=== PATIENT | male | born 1930 | race Caucasian/White ===

== ENCOUNTER 2016-11-27 11:11 | Inpatient (IN) | payer MEDICARE, MEDICAID ==
--- NOTE | 2016-11-27 12:25 | ED Physician Chart ---
ED Chief Complaint/HPI - Patient Information Date Seen:: 11/27/16 Time Seen:: 12:20 Chief Complaint:: falling History of Present Illness:: pt having freq falls. concerning to family. he fell earlier today. lost balance fell. no loc. pos hit head. family notes increased tremors lately and he seems more weak. no fever. no illness. no n/v/d. eats ok. no rash. no ZAYAS. not increased confusion since fall. pt has been w Dr Beatty in past but is requesting Dr Smith today hx of brain sx for ic bleed 4 yrs ago Allergies:: Allergies Allergy/AdvReac Type Severity Reaction Status Date / Time No Known Allergies Allergy Verified 12/27/15 04:23 Vitals:: Vital Signs - 8 hr 11/27/16 11:28 Temp 98.1 F HR 70 RR 16 BP 133/73 O2 Sat % 98 Historian:: Patient, Friend (dtr,grnd dtr) ED Past Medical History - Past Medical History Past Medical History: Other (aldzheimers, essential tremors) Social History: Other (lives w family) Surgical History: Pacemaker, other (hx of brain sx for ic bleed 4 yrs ago) Medication: Reviewed Family Medical History - Family Member family History Unknown: Yes Ethnicity: Unknown Living Status: Unknown Hx Family Cancer: No Hx Family Coronary Artery Disease: No Hx Family Congestive Heart Failure: (unknown) Hx Family Hypertension: No Hx Family Stroke: No Hx Family Diabetes: (unknown) Hx Family Seizures: No Hx Family Dementia: No Hx Family AIDS: (unknown) Hx Family HIV: No Hx Family COPD: No Hx Family Hepatitis: (unknown) Hx Family Psychiatric Problems: (unknown) Hx Family Tuberculosis: (unknown) ED Physical Exam - Physical Examination General/Constitutional: Awake, Well-developed, well-nourished, Alert, No distress, GCS 15, Non-toxic appearing, Ambulatory Other Gen/Cons comments:: mod obese. pt lets family give history..suspect his ability is limited... no focal major neuro defecit. wn/wh. eyes a little sunken. Head: Atraumatic Eyes: Lids, conjuctiva normal, PERRL, EOMI Skin: Nl inspection, No rash, No skin lesions, No ecchymosis, Well hydrated, No lymphadenopathy ENMT: External ears, nose nl, Nasal exam nl, Lips, teeth, gums nl Neck: Nontender, Full ROM w/o pain, No JVD, No nuchal rigidity, No bruit, No mass, No stridor Other Neck comments:: neck nontndr. ok rom without pain. head no evidence of trauma. no injury.no bruising. Respiratory: Nl effort/Exclusion, Clear to Auscultation, No Wheeze/Rhonchi/Rales Cardio Vascular: RRR, No murmur, gallop, rubs, NL S1 S2 GI: No tenderness/rebounding/guarding, No organomegaly, No hernia, Normal BS's, Nondistended, No mass/bruits, No McBurney tenderness : No CVA tenderness Extremities: No tenderness or effusion, Full ROM, normal strength in all extremities, No edema, Normal digits & nails Neuro/Psych: Alert/oriented, DTR's symmetric, Normal sensory exam, Normal motor strength, Mood normal, Normal gait, No focal deficits Misc: normal gait, Normal back, No paraspinal tenderness ED Labs/Radiology/EKG Results - Lab Results Results: Laboratory Tests 11/27/16 11/27/16 11/27/16 12:25 12:25 12:25 WBC 7.1 RBC 3.95 Hgb 11.8 L Hct 35.3 L MCV 89.3 MCH 29.9 MCHC Differential 33.5 RDW 13.4 Plt Count 189 MPV 8.6 Neutrophils % 55.0 Lymphocytes % 31.8 Monocytes % 7.4 Eosinophils % 5.2 H Basophils % 0.6 Sodium 140 Potassium 4.9 Chloride 110 H Carbon Dioxide 26.1 Anion Gap 8.8 BUN 29 H Creatinine 2.1 H Est GFR ( Amer) TNP Est GFR (Non-Af Amer) TNP BUN/Creatinine Ratio 13.8 Glucose 86 Calcium 8.6 Total Bilirubin 0.3 AST 11 L ALT 7 Alkaline Phosphatase 56 Troponin I 0.03 Total Protein 6.2 Albumin 3.4 L Globulin 2.8 Albumin/Globulin Ratio 1.2 - Radiology Results Results: ct head -- IMPRESSION: No evidence of acute intracranial hemorrhage. Postsurgical changes including evidence of bifrontal bitemporal craniotomies. Please core the clinical history. Diffuse supratentorial white matter disease which is nonspecific and may be due to chronic microvessel ischemia. Old right basal ganglia lacunar infarcts. Atrophy. Atherosclerotic vascular disease. ED Septic Shock - . Is Septic Shock (SBP<90, OR Lactate>4 mmol\L) present?: No - <6hrs of presentation: Vital Signs: Vital Signs - 8 hr 11/27/16 11:28 Temp 98.1 F HR 70 RR 16 BP 133/73 O2 Sat % 98 ED Reassessment (Disposition) - Reassessment Reassessment Condition:: Improved - Aftercare/Follow up Instructions Aftercare/Follow-Up Instructions:: Counseled pt & family regarding lab results/ diagnosis & need follow up Medication Prescribed:: rx indocin and colchicine rx dw pt use of. advise see pmd in next 2 wks. return fi worse pain and redness/swelling develops. reast. avoid red meats. encouraged further reading on gout and diet modification...increase fluids - Patient Disposition Discharge/Transfer:: Home Condition at Disposition:: Improved
[2016-11-27 12:46] LABS: % BASOPHILS 0.6 % (0.0-2.0); % EOSINOPHILS 5.2 % (0.0-5.0); % LYMPHOCYTES 31.8 % (20.0-50.0); % MONOCYTES 7.4 % (2.0-10.0); HEMATOCRIT 35.3 % (41.0-60); HEMOGLOBIN 11.8 gm/dL (12-16); MEAN CELL VOLUME 89.3 fl (80-99); MEAN CORPUSCULAR HEMOGLOBIN 29.9 pg (27.0-31.0); MEAN CORPUSCULAR HGB CONC 33.5 pg (28.0-36.0); MEAN PLATELET VOLUME 8.6 fl; NEUTROPHILE ABSOLUTE 3.9 Th/cmm (1.8-8.0); PLATELET COUNT 189 Th/cmm (150-400); RED BLOOD COUNT 3.95 Mil/cmm (3.80-5.80); RED CELL DISTRIBUTION WIDTH 13.4 % (11.5-20.0); WHITE BLOOD COUNT 7.1 Th/cmm (4.8-10.8)
[2016-11-27 12:55] LABS: ALB/GLOB RATIO 1.2 (1.0-1.8); ALKALINE PHOSPHATASE 56 U/L (34-104); ANION GAP 8.8 (7.0-16.0); BILIRUBIN,TOTAL 0.3 mg/dL (0.3-1.0); BUN - UREA NITROGEN 29 mg/dL (7-25); BUN/CREATININE RATIO 13.8; CALCIUM SERUM 8.6 mg/dL (8.6-10.3); CARBON DIOXIDE 26.1 mEq/L (21.0-31.0); CHLORIDE 110 mEq/L (98-107); CREATININE - SERUM 2.1 mg/dL (0.7-1.3); GLUCOSE 86 mg/dL (70-105); POTASSIUM SERUM 4.9 mEq/L (3.5-5.1); SGOT 11 U/L (13-39); SGPT/ALT 7 U/L (7-52); SODIUM SERUM 140 mEq/L (136-145)
--- NOTE | 2016-11-27 13:28 | Diagnostic Imaging Report ---
Head CT without intravenous contrast Indication: Fall Comparison: None Technique: Axial images were obtained from the vertex to the skull base without IV contrast. Coronal reconstructions were made. Total DLP: 1429, [id number] FINDINGS: Images of the brain obtained without contrast demonstrate evidence of previous bifrontal and by temporal craniotomies. Atrophy is noted. There is no evidence of an acute hemorrhage. Diffuse supratentorial white matter disease is noted. Old right basal ganglia infarcts are noted. The ventricles and basal cisterns are patent. No mass effect or midline shift. Mild atherosclerotic vascular disease is noted. No focal soft tissue swelling. The visualized paranasal sinuses demonstrate mild mucosal thickening. IMPRESSION: No evidence of acute intracranial hemorrhage. Postsurgical changes including evidence of bifrontal bitemporal craniotomies. Please core the clinical history. Diffuse supratentorial white matter disease which is nonspecific and may be due to chronic microvessel ischemia. Old right basal ganglia lacunar infarcts. Atrophy. Atherosclerotic vascular disease.
[2016-11-27 15:22] LABS: URINE BILIRUBIN NEGATIVE (NEGATIVE); URINE BLOOD NEGATIVE (NEGATIVE); URINE GLUCOSE (UA) NEGATIVE (NEGATIVE); URINE KETONE NEGATIVE (NEGATIVE); URINE PH 5.5 (4.6 - 8.0); URINE PROTEIN NEGATIVE (NEGATIVE); URINE UROBILINOGEN 0.2 E.U./dL (0.2 - 1.0)
[2016-11-27 15:24] LABS: URINE COLOR YELLOW
[2016-11-27 15:25] LABS: URINE BACTERIA NONE SEEN /hpf (NONE SEEN); URINE EPITHELIAL CELLS NONE SEEN /lpf (FEW); URINE RBC NONE SEEN /hpf (0-5); URINE WBC NONE SEEN /hpf (0-5)
[2016-11-27] MEDS ORDERED: D5-0.9%NS 1,000 ML IV SCH (16:30)
[2016-11-27] MEDS ORDERED: Maalox 30 mL Cup PO PRN (17:02)
[2016-11-27 17:15] VITALS: BP 108/47
[2016-11-27] MEDS ORDERED: Hydrocodone/APAP 5mg/325mg Tab PO PRN (20:32)
[2016-11-28 05:45] LABS: % BASOPHILS 0.5 % (0.0-2.0); % LYMPHOCYTES 36.5 % (20.0-50.0); % MONOCYTES 6.3 % (2.0-10.0); % NEUTROPHILS 51.7 % (40.0-80.0); HEMATOCRIT 35.5 % (41.0-60); HEMOGLOBIN 11.7 gm/dL (12-16); MEAN CORPUSCULAR HEMOGLOBIN 29.5 pg (27.0-31.0); MEAN CORPUSCULAR HGB CONC 33.1 pg (28.0-36.0); MEAN PLATELET VOLUME 8.6 fl; PLATELET COUNT 175 Th/cmm (150-400); RED BLOOD COUNT 3.99 Mil/cmm (3.80-5.80); RED CELL DISTRIBUTION WIDTH 13.3 % (11.5-20.0); WHITE BLOOD COUNT 7.7 Th/cmm (4.8-10.8)
[2016-11-28 06:06] LABS: ANION GAP 10.3 (7.0-16.0); BUN - UREA NITROGEN 31 mg/dL (7-25); BUN/CREATININE RATIO 14.8; CALCIUM SERUM 8.7 mg/dL (8.6-10.3); CARBON DIOXIDE 24.2 mEq/L (21.0-31.0); CHLORIDE 110 mEq/L (98-107); CREATININE - SERUM 2.1 mg/dL (0.7-1.3); GLUCOSE 89 mg/dL (70-105); POTASSIUM SERUM 4.5 mEq/L (3.5-5.1); SODIUM SERUM 140 mEq/L (136-145)
[2016-11-28] MEDS ORDERED: Hydrocodone/APAP 5mg/325mg Tab PO PRN (08:10)
[2016-11-28] MEDS: Aspirin 81mg Chewable Tab PO SCH (08:40)
--- NOTE | 2016-11-28 10:25 | History & Physical ---
ADMIT DATE: 11/27/2016 HISTORY OF PRESENT ILLNESS: This is an 86-year-old male patient who came to [facility]. The patient is a resident of a [facility] and [facility]. Apparently, the patient had prior craniotomy. The patient also has a history of cardiac arrhythmia, and the patient had a pacemaker put in, and the patient has history of dementia and Alzheimer disease. The patient has a history of recurrent falls and he was sent for evaluation. The patient was seen and was admitted for further evaluation. The patient complains of no chest pain, no abdominal pain, no nausea, no vomiting, no diarrhea. REVIEW OF SYSTEMS: Otherwise, negative, except history of forgetfulness, which is increasing, dementia increasing, and history of recurrent falls. PAST MEDICAL HISTORY: As enumerated above, history of Alzheimer's disease, history of dementia, history of craniotomy, status post craniotomy x 2, history of status post pacemaker. The patient has a history of lacunar infarct and CVA. MEDICATIONS: The patient is on beta emiliano. He is on isosorbide. He is on Keppra for his seizures, and the patient is on aspirin as well. PHYSICAL EXAMINATION: GENERAL: The patient on examination is awake, alert, not in any distress. HEAD: Normal. ENT: Normal. NECK: Supple, nontender. LUNGS: Clear. CARDIOVASCULAR SYSTEM: S1, S2 heard. ABDOMEN: Soft. Bowel sounds are heard. CENTRAL NERVOUS SYSTEM: The patient has forgetfulness, and is little confused. IMPRESSION: History of recurrent falls, increasing dementia, history of recent craniotomy x 2, history of status post pacemaker, history of seizures, history of cerebrovascular accident, and history of heart disease, toxic metabolic encephalopathy. PLAN: The patient is being admitted. I will go ahead and do a cardiac workup and neuro workup. I will have Dr. Dyer and Dr. Johann Frost see the patient. We will further evaluate the reason for his falls. We will also get physical therapy involved and give him PT, and I will also do some blood work to see if there is any vitamin deficiency to reverse any portion of dementia. [facility]# [id number]
--- NOTE | 2016-11-28 12:25 | Diagnostic Imaging Report ---
Exam: Ultrasound examination of the extracranial carotid circulation. HISTORY: Frequent.. Findings: Real-time ultrasound summation of the extracranial carotid circulation was performed multiple planes utilizing color Doppler technique. The study demonstrates moderate atherosclerotic plaque formation along the course of common carotid arteries the plaque arising into the origin internal and external carotid arteries bilaterally. Subintimal thickening is noted carotid bulbs bilaterally. The vertebral arteries are not visualized due to patient inability to cooperate Right internal carotid artery ratio 0.9 Left internal carotid artery ratio 1.4 IMPRESSION: Moderate atherosclerotic plaque formation of the carotid arteries bilaterally with calcified and soft plaque formation of the origin internal carotid arteries bilaterally without significant stenosis or alteration of flow. The study somewhat limited due to patient inability to cooperate.
--- NOTE | 2016-11-28 15:16 | Cardiology ---
11/28/[address] Smith. M-MODE ECHOCARDIOGRAM: Mitral valve, anterior leaflet of mitral valve shows normal excursion, EF velocity. Posterior leaflet of mitral valve shows normal excursion. Left ventricular posterior wall shows increased thickness, normal excursion. Interventricular septum shows increased thickness, normal excursion, hypertrophy of the left ventricle, ejection fraction 50%. Left atrium enlarged 4.1 cm. Aortic root shows normal dimension, normal excursion of aortic leaflets. CONCLUSION: Hypertrophy of the left ventricle, left atrial enlargement, ejection fraction 50%. 2D ECHO: Long axis view showed normal sized left ventricle with hypertrophy of the left ventricle. Left atrium enlarged. Aortic root shows normal dimension, normal excursion of aortic leaflets. Short axis view of mitral valve normal. Short axis view of aortic valve normal. Apical four chamber view showed normal sized left ventricle with hypertrophy of the left ventricle. Left atrium enlarged. Right ventricular cavity, right atrium normal, no pericardial effusion. CONCLUSION: Hypertrophy of the left ventricle. Left atrial enlargement, ejection fraction 50%. Doppler study shows prominent A wave consistent with poor compliance of left ventricle. Mild mitral regurgitation, mild tricuspid regurgitation, moderate aortic regurgitation, mild pulmonary regurgitation. [facility]# [id number]
[2016-11-28] MEDS ORDERED: VTE Chemical Prophylaxis Screen/Admission MC PRN (16:37)
--- NOTE | 2016-11-28 21:47 | Consultation ---
DATE OF CONSULTATION: 11/28/[address] Smith. HISTORY AND PHYSICAL: This is an 86-year-old male patient, who came to the Emergency Room because of frequent falls. The patient was seen in the Emergency Room and the patient is admitted. The patient has sick sinus syndrome with a pacemaker. No history of PND. The patient is confused and has dementia. PAST MEDICAL HISTORY: Craniotomy x2 for reason unknown, sick sinus syndrome with pacemaker, dementia, old lacunar infarct, CVA with late effect, iron-deficiency anemia. FAMILY HISTORY: Unremarkable. SOCIAL HISTORY: No history of smoking, alcohol abuse. ALLERGIES: No known allergies. PHYSICAL EXAMINATION: VITAL SIGNS: Blood pressure 130/80, pulse 70, respirations 20. HEAD: Normocephalic. No lumps or bumps. EYES: Pupils equal, reactive to light. Fundi show AV nicking. Sclerae white, conjunctivae pink. NECK: Carotid 2+. Normal upstroke. JVD flat. Thyroid not palpable. Lymph nodes not palpable. CHEST: Shows increased AP diameter. No kyphosis, scoliosis. LUNGS: Bilateral bronchovesicular breath sounds. HEART: PMI fifth intercostal space with lateral to midclavicular line. S1, S2. No S3, S4. Systolic murmur, grade 2/6, lower left sternal border without radiation. ABDOMEN: Soft. Liver and spleen are not palpable. No organomegaly. Bowel sounds are active. NEUROLOGIC: The patient has frequent falls. EXTREMITIES: No pedal edema. CLINICAL IMPRESSION: 1. Ataxia with frequent falls. 2. Previously craniotomy x2. 3. Sick sinus syndrome with pacemaker. 4. Dementia. 5. Old lacunar infarct. 6. Cerebrovascular accident with late effect. 7. Iron-deficiency anemia. 8. Chronic kidney disease, stage 2. PLAN: Admitted the patient. The patient had an echocardiogram which showed hypertrophy of the left ventricle, ejection fraction 50%, left atrial enlargement, right atrial enlargement, mild tricuspid regurgitation, mild mitral regurgitation, moderate aortic regurgitation, mild pulmonary regurgitation. We will monitor the patient for any arrhythmias. JOB# [id number]
[2016-11-29] MEDS: Aspirin 81mg Chewable Tab PO SCH (09:37)
--- NOTE | 2016-11-29 11:09 | General Progress Note ---
Subjective - Review of Systems Events since last encounter: 86 year old male patient with h/o craniotomy h/o cardiac arrhythmia, pace maker h/o dementia h/o alzheimers disease admitted for evaluation s/p falls patient awake alert no distress Objective - Results Result Diagrams: 11/28/16 05:08 11/28/16 05:08 Recent Labs: Laboratory Last Values WBC 7.7 Th/cmm (4.8-10.8) 11/28/16 05:08 RBC 3.99 Mil/cmm (3.80-5.80) 11/28/16 05:08 Hgb 11.7 gm/dL (12-16) L 11/28/16 05:08 Hct 35.5 % (41.0-60) L 11/28/16 05:08 MCV 89.0 fl (80-99) 11/28/16 05:08 MCH 29.5 pg (27.0-31.0) 11/28/16 05:08 MCHC Differential 33.1 pg (28.0-36.0) 11/28/16 05:08 RDW 13.3 % (11.5-20.0) 11/28/16 05:08 Plt Count 175 Th/cmm (150-400) 11/28/16 05:08 MPV 8.6 fl 11/28/16 05:08 Neutrophils % 51.7 % (40.0-80.0) 11/28/16 05:08 Lymphocytes % 36.5 % (20.0-50.0) 11/28/16 05:08 Monocytes % 6.3 % (2.0-10.0) 11/28/16 05:08 Eosinophils % 5.0 % (0.0-5.0) 11/28/16 05:08 Basophils % 0.5 % (0.0-2.0) 11/28/16 05:08 Sodium 140 mEq/L (136-145) 11/28/16 05:08 Potassium 4.5 mEq/L (3.5-5.1) 11/28/16 05:08 Chloride 110 mEq/L (98-107) H 11/28/16 05:08 Carbon Dioxide 24.2 mEq/L (21.0-31.0) 11/28/16 05:08 Anion Gap 10.3 (7.0-16.0) 11/28/16 05:08 BUN 31 mg/dL (7-25) H 11/28/16 05:08 Creatinine 2.1 mg/dL (0.7-1.3) H 11/28/16 05:08 Est GFR ( Amer) TNP 11/28/16 05:08 Est GFR (Non-Af Amer) TNP 11/28/16 05:08 BUN/Creatinine Ratio 14.8 11/28/16 05:08 Glucose 89 mg/dL (70-105) 11/28/16 05:08 Calcium 8.7 mg/dL (8.6-10.3) 11/28/16 05:08 Total Bilirubin 0.3 mg/dL (0.3-1.0) 11/27/16 12:25 AST 11 U/L (13-39) L 11/27/16 12:25 ALT 7 U/L (7-52) 11/27/16 12:25 Alkaline Phosphatase 56 U/L (34-104) 11/27/16 12:25 Troponin I 0.03 ng/mL (0.01-0.05) 11/27/16 12:25 Total Protein 6.2 gm/dL (6.0-8.3) 11/27/16 12:25 Albumin 3.4 gm/dL (4.2-5.5) L 11/27/16 12:25 Globulin 2.8 gm/dL 11/27/16 12:25 Albumin/Globulin Ratio 1.2 (1.0-1.8) 11/27/16 12:25 Urine Source CLEAN C 11/27/16 14:45 Urine Color YELLOW 11/27/16 14:45 Urine Clarity CLEAR (CLEAR) 11/27/16 14:45 Urine pH 5.5 (4.6 - 8.0) 11/27/16 14:45 Ur Specific [place] 1.025 (1.005-1.030) 11/27/16 14:45 Urine Protein NEGATIVE mg/dL (NEGATIVE) 11/27/16 14:45 Urine Glucose (UA) NEGATIVE mg/dL (NEGATIVE) 11/27/16 14:45 Urine Ketones NEGATIVE mg/dL (NEGATIVE) 11/27/16 14:45 Urine Blood NEGATIVE (NEGATIVE) 11/27/16 14:45 Urine Nitrate NEGATIVE (NEGATIVE) 11/27/16 14:45 Urine Bilirubin NEGATIVE (NEGATIVE) 11/27/16 14:45 Urine Urobilinogen 0.2 E.U./dL (0.2 - 1.0) 11/27/16 14:45 Ur Leukocyte Esterase NEGATIVE (NEGATIVE) 11/27/16 14:45 Urine RBC NONE SEEN /hpf (0-5) 11/27/16 14:45 Urine WBC NONE SEEN /hpf (0-5) 11/27/16 14:45 Ur Epithelial Cells NONE SEEN /lpf (FEW) 11/27/16 14:45 Urine Bacteria NONE SEEN /hpf (NONE SEEN) 11/27/16 14:45 - Physical Exam Vitals and I&O: Vital Signs Temp 98.4 F 11/29/16 04:00 Pulse 80 11/29/16 09:37 Resp 20 11/29/16 04:00 BP 153/73 11/29/16 09:37 Pulse Ox 95 11/29/16 04:00 Intake & Output 11/28/16 11/29/16 11/29/16 18:59 06:59 18:59 Intake Total 650 Balance 650 Weight (lbs) 104.326 kg 103.873 kg Intake: Oral 650 Other: # Voids 6 # Bowel Movements 0 Active Medications: Current Medications Acetaminophen (Tylenol) 650 mg PO Q4H PRN PRN Reason: Pain (Mild) Stop: 01/27/17 08:07 Acetaminophen/Hydrocodone Bitart ([place] 5mg/325mg) 1 tab PO Q4H PRN PRN Reason: Pain (Moderate) Stop: 01/27/17 08:09 Al Hydrox/Mg Hydrox/Simethicone (Maalox) 30 ml PO Q4HR PRN PRN Reason: GI DISTRESS Stop: 01/26/17 17:01 Aspirin (Aspirin Chewable) 81 mg PO DAILY SANDAR Stop: 01/27/17 08:59 Last Admin: 11/29/16 09:37 Dose: 81 mg Bisacodyl (Dulcolax 10 Mg Supp) 10 mg RC DAILY PRN PRN Reason: Constipation Stop: 01/26/17 20:31 Clopidogrel Bisulfate (Plavix) 75 mg PO DAILY SANDRA Stop: 01/27/17 08:59 Last Admin: 11/29/16 09:37 Dose: 75 mg Famotidine (Pepcid) 20 mg PO HS SANDRA Stop: 01/26/17 20:59 Last Admin: 11/28/16 21:10 Dose: 20 mg Folic Acid (Folate) 1 mg PO DAILY SANDRA Stop: 01/27/17 08:59 Last Admin: 11/29/16 09:37 Dose: 1 mg Isosorbide Dinitrate (Isordil) 5 mg PO DAILY SANDRA Stop: 01/27/17 08:59 Last Admin: 11/29/16 09:37 Dose: 5 mg Levetiracetam (Keppra) 500 mg PO BID SANDRA Stop: 01/27/17 08:59 Last Admin: 11/29/16 09:37 Dose: 500 mg Lorazepam (Ativan) 0.5 mg PO Q4HR PRN; Protocol PRN Reason: Agitation Stop: 01/26/17 20:31 Last Admin: 11/28/16 02:15 Dose: 0.5 mg Metoprolol Tartrate (Lopressor) 25 mg PO BID SANDRA Stop: 01/27/17 08:59 Last Admin: 11/29/16 09:36 Dose: 25 mg Miscellaneous (Clinical Monitoring) 1 ea MC DAILY PRN PRN Reason: RENAL Stop: 01/27/17 08:57 Miscellaneous (Vte Chemical Prophylaxis Screen/ Admission) 1 ea MC PRN PRN PRN Reason: PROTOCOL Stop: 01/27/17 16:36 Sertraline HCl (Zoloft) 100 mg PO DAILY SANDRA PRN Reason: Protocol Stop: 01/27/17 08:59 Last Admin: 11/29/16 09:36 Dose: 100 mg Trazodone HCl (Desyrel) 50 mg PO HS SANDRA PRN Reason: Protocol Stop: 01/27/17 20:59 Last Admin: 11/28/16 21:10 Dose: 50 mg Zolpidem Tartrate (Ambien) 5 mg PO HS PRN PRN Reason: Insomnia Stop: 01/26/17 22:19 Last Admin: 11/28/16 02:15 Dose: 5 mg General: No acute distress HEENT: Atraumatic Neck: Supple Cardiovascular: Regular rate, Normal S1, Normal S2 Abdomen: Bowel sounds Assessment/Plan - Problem List Patient Problems: All Active Problems CKD (chronic kidney disease) (Acute) N18.9 Coronary arteriosclerosis (Acute) Mental health disorder (Acute) F99 Obesity (Acute) E66.9 Seizure disorder (Acute) G40.909 - Plan Plan: monitor vitals/diet labs f/up consultants
--- NOTE | 2016-11-30 08:30 | General Progress Note ---
Subjective - Review of Systems Subjective: patient awake alert no distress Objective - Results Result Diagrams: 11/28/16 05:08 11/28/16 05:08 Recent Labs: Laboratory Last Values WBC 7.7 Th/cmm (4.8-10.8) 11/28/16 05:08 RBC 3.99 Mil/cmm (3.80-5.80) 11/28/16 05:08 Hgb 11.7 gm/dL (12-16) L 11/28/16 05:08 Hct 35.5 % (41.0-60) L 11/28/16 05:08 MCV 89.0 fl (80-99) 11/28/16 05:08 MCH 29.5 pg (27.0-31.0) 11/28/16 05:08 MCHC Differential 33.1 pg (28.0-36.0) 11/28/16 05:08 RDW 13.3 % (11.5-20.0) 11/28/16 05:08 Plt Count 175 Th/cmm (150-400) 11/28/16 05:08 MPV 8.6 fl 11/28/16 05:08 Neutrophils % 51.7 % (40.0-80.0) 11/28/16 05:08 Lymphocytes % 36.5 % (20.0-50.0) 11/28/16 05:08 Monocytes % 6.3 % (2.0-10.0) 11/28/16 05:08 Eosinophils % 5.0 % (0.0-5.0) 11/28/16 05:08 Basophils % 0.5 % (0.0-2.0) 11/28/16 05:08 Sodium 140 mEq/L (136-145) 11/28/16 05:08 Potassium 4.5 mEq/L (3.5-5.1) 11/28/16 05:08 Chloride 110 mEq/L (98-107) H 11/28/16 05:08 Carbon Dioxide 24.2 mEq/L (21.0-31.0) 11/28/16 05:08 Anion Gap 10.3 (7.0-16.0) 11/28/16 05:08 BUN 31 mg/dL (7-25) H 11/28/16 05:08 Creatinine 2.1 mg/dL (0.7-1.3) H 11/28/16 05:08 Est GFR ( Amer) TNP 11/28/16 05:08 Est GFR (Non-Af Amer) TNP 11/28/16 05:08 BUN/Creatinine Ratio 14.8 11/28/16 05:08 Glucose 89 mg/dL (70-105) 11/28/16 05:08 Calcium 8.7 mg/dL (8.6-10.3) 11/28/16 05:08 Total Bilirubin 0.3 mg/dL (0.3-1.0) 11/27/16 12:25 AST 11 U/L (13-39) L 11/27/16 12:25 ALT 7 U/L (7-52) 11/27/16 12:25 Alkaline Phosphatase 56 U/L (34-104) 11/27/16 12:25 Troponin I 0.03 ng/mL (0.01-0.05) 11/27/16 12:25 Total Protein 6.2 gm/dL (6.0-8.3) 11/27/16 12:25 Albumin 3.4 gm/dL (4.2-5.5) L 11/27/16 12:25 Globulin 2.8 gm/dL 11/27/16 12:25 Albumin/Globulin Ratio 1.2 (1.0-1.8) 11/27/16 12:25 Carcinoembryonic Ag 0.8 ng/mL (0.0-4.7) 11/28/16 05:08 Prostate Specific Ag 3.1 ng/mL (0.0-4.0) 11/28/16 05:08 Urine Source CLEAN C 11/27/16 14:45 Urine Color YELLOW 11/27/16 14:45 Urine Clarity CLEAR (CLEAR) 11/27/16 14:45 Urine pH 5.5 (4.6 - 8.0) 11/27/16 14:45 Ur Specific [place] 1.025 (1.005-1.030) 11/27/16 14:45 Urine Protein NEGATIVE mg/dL (NEGATIVE) 11/27/16 14:45 Urine Glucose (UA) NEGATIVE mg/dL (NEGATIVE) 11/27/16 14:45 Urine Ketones NEGATIVE mg/dL (NEGATIVE) 11/27/16 14:45 Urine Blood NEGATIVE (NEGATIVE) 11/27/16 14:45 Urine Nitrate NEGATIVE (NEGATIVE) 11/27/16 14:45 Urine Bilirubin NEGATIVE (NEGATIVE) 11/27/16 14:45 Urine Urobilinogen 0.2 E.U./dL (0.2 - 1.0) 11/27/16 14:45 Ur Leukocyte Esterase NEGATIVE (NEGATIVE) 11/27/16 14:45 Urine RBC NONE SEEN /hpf (0-5) 11/27/16 14:45 Urine WBC NONE SEEN /hpf (0-5) 11/27/16 14:45 Ur Epithelial Cells NONE SEEN /lpf (FEW) 11/27/16 14:45 Urine Bacteria NONE SEEN /hpf (NONE SEEN) 11/27/16 14:45 - Physical Exam Vitals and I&O: Vital Signs Temp 98.0 F 11/30/16 04:00 Pulse 73 11/30/16 04:00 Resp 20 11/30/16 04:00 BP 120/64 11/30/16 04:00 Pulse Ox 97 11/30/16 04:00 Intake & Output 11/29/16 11/30/16 11/30/16 18:59 06:59 18:59 Intake Total 720 250 Balance 720 250 Weight (lbs) 103.873 kg 103.419 kg Intake: Oral 720 250 Other: # Voids 3 # Bowel Movements 0 Active Medications: Current Medications Acetaminophen (Tylenol) 650 mg PO Q4H PRN PRN Reason: Pain (Mild) Stop: 01/27/17 08:07 Acetaminophen/Hydrocodone Bitart ([place] 5mg/325mg) 1 tab PO Q4H PRN PRN Reason: Pain (Moderate) Stop: 01/27/17 08:09 Al Hydrox/Mg Hydrox/Simethicone (Maalox) 30 ml PO Q4HR PRN PRN Reason: GI DISTRESS Stop: 01/26/17 17:01 Aspirin (Aspirin Chewable) 81 mg PO DAILY [facility] Stop: 01/27/17 08:59 Last Admin: 11/29/16 09:37 Dose: 81 mg Bisacodyl (Dulcolax 10 Mg Supp) 10 mg RC DAILY PRN PRN Reason: Constipation Stop: 01/26/17 20:31 Clopidogrel Bisulfate (Plavix) 75 mg PO DAILY [facility] Stop: 01/27/17 08:59 Last Admin: 11/29/16 09:37 Dose: 75 mg Famotidine (Pepcid) 20 mg PO HS SANDRA Stop: 01/26/17 20:59 Last Admin: 11/29/16 20:44 Dose: 20 mg Folic Acid (Folate) 1 mg PO DAILY SANDRA Stop: 01/27/17 08:59 Last Admin: 11/29/16 09:37 Dose: 1 mg Isosorbide Dinitrate (Isordil) 5 mg PO DAILY SANDRA Stop: 01/27/17 08:59 Last Admin: 11/29/16 09:37 Dose: 5 mg Levetiracetam (Keppra) 500 mg PO BID SANDRA Stop: 01/27/17 08:59 Last Admin: 11/29/16 17:00 Dose: Not Given Lorazepam (Ativan) 0.5 mg PO Q4HR PRN; Protocol PRN Reason: Agitation Stop: 01/26/17 20:31 Last Admin: 11/28/16 02:15 Dose: 0.5 mg Metoprolol Tartrate (Lopressor) 25 mg PO BID SANDRA Stop: 01/27/17 08:59 Last Admin: 11/29/16 17:00 Dose: Not Given Miscellaneous (Clinical Monitoring) 1 ea MC DAILY PRN PRN Reason: RENAL Stop: 01/27/17 08:57 Miscellaneous (Vte Chemical Prophylaxis Screen/ Admission) 1 ea MC PRN PRN PRN Reason: PROTOCOL Stop: 01/27/17 16:36 Sertraline HCl (Zoloft) 100 mg PO DAILY SANDRA PRN Reason: Protocol Stop: 01/27/17 08:59 Last Admin: 11/29/16 09:36 Dose: 100 mg Trazodone HCl (Desyrel) 50 mg PO HS SANDRA PRN Reason: Protocol Stop: 01/27/17 20:59 Last Admin: 11/29/16 20:44 Dose: 50 mg Zolpidem Tartrate (Ambien) 5 mg PO HS PRN PRN Reason: Insomnia Stop: 01/26/17 22:19 Last Admin: 11/28/16 02:15 Dose: 5 mg General: No acute distress HEENT: Atraumatic Neck: Supple Cardiovascular: Regular rate, Normal S1, Normal S2 Abdomen: Bowel sounds Assessment/Plan - Problem List Patient Problems: All Active Problems CKD (chronic kidney disease) (Acute) N18.9 Coronary arteriosclerosis (Acute) Mental health disorder (Acute) F99 Obesity (Acute) E66.9 Seizure disorder (Acute) G40.909 - Plan Plan: monitor vitals/diet labs f/up consultants
[2016-11-30] MEDS: Aspirin 81mg Chewable Tab PO SCH (09:26)
--- NOTE | 2016-12-11 01:32 | Discharge Summary ---
DATE OF DISCHARGE: 11/30/2016 HOSPITAL COURSE: This is an 86-year-old female patient, who was sent to [facility] from [facility]. Apparently, she has a history of prior craniotomy, increasing forgetfulness, and history of cardiac arrhythmia, history of Alzheimer's disease. INITIAL DIAGNOSES: History of recurrent fall, history of dementia, recent craniotomy x 2, history of pacemaker and seizure, history of ____ heart disease, and toxic encephalopathy. The patient had a complete cardiac and neuro workup and Neurology saw the patient, as well as the spring former, and later physical therapy seen her also. The patient improved. The patient was in a stable condition on 11/30/2016, admitted on 11/27/2016, was discharged to [place], where I will be following the patient. MEDICATIONS: See the reconciliation sheet. ACTIVITY: As tolerated. JOB# [id number]
== END 2016-11-30 16:15 | DRG 91 ==
LOC: ER 11:11 → MSI 15:45
PROVIDERS: ADMIT Internal Medicine; ATTEND Internal Medicine
DX: R27.0 Ataxia, unspecified (principal); G92 Toxic encephalopathy; G30.9 Alzheimer's disease, unspecified; I69.30 Unspecified sequelae of cerebral infarction; F02.80 Dementia in other diseases classified elsewhere, unspecified severity, without behavioral disturbance, psychotic disturbance, mood disturbance, and anxiety; I08.3 Combined rheumatic disorders of mitral, aortic and tricuspid valves; D50.9 Iron deficiency anemia, unspecified; N18.2 Chronic kidney disease, stage 2 (mild); W18.30XA Fall on same level, unspecified, initial encounter; Y93.89 Activity, other specified; Y92.89 Other specified places as the place of occurrence of the external cause; Y99.8 Other external cause status; Z95.0 Presence of cardiac pacemaker; Z91.81 History of falling
CPT/HCPCS: 36415-UA; 70450-TC; 80048-TC; 80053-TC; 81001-TC; 82378-90; 84153-90; 84484-TC; 85025-TC; 93880-TC; 97530; J7042; X3904; Z7610